=== PATIENT | female | born 1950 | race Caucasian/White ===

== ENCOUNTER 2021-08-25 18:12 | Emergency (ER) | payer MEDICARE, MEDICAID, SELFPAY ==
[2021-08-25 18:42] VITALS: BP 187/95; PULSE 100; RESP 16; TEMP 36.2; O2SAT 96; BMI 26.2
[2021-08-25 19:14] LABS: COVID-19 Test Positive (Negative)
--- NOTE | 2021-08-25 22:09 | ED_ITS ---
HPI - URI/Sore Throat General Chief Complaint: Upper Respiratory Symptoms Stated Complaint: Flu like Time Seen by Provider: 08/25/21 21:47 Source: patient Mode of arrival: ambulatory Limitations: no limitations History of Present Illness HPI Narrative: 71-year-old female who presents emergency way lynne cough nonproductive. She mild should hurts of breath and fatigue with exertion but no dyspnea on exertion. She denied myalgias arthralgias, loss of sense of taste or smell, diarrhea. The patient states that her symptoms have not been getting worse but she was concerned that she might have COVID-19 so she came to the emergency department for evaluation. She has not been vaccinated for COVID-19. She denies any chronic medical conditions such as diabetes, hypertension, hyperlipidemia. She states she has anxiety and she takes a medication for anxiety but she does not know the name of this medicine. Related Data Allergies Allergy/AdvReac Type Severity Reaction Status Date / Time Penicillins Allergy Rash Verified 08/25/21 18:42 Review of Systems Review of Systems: Yes all other systems are reviewed and are negative Neurologic: Reports Abnormal speech present [facility] Past Medical History [facility] Narrative: Past medical history: Anxiety. Past surgical history: Patient states that she had a benign mass removed from her abdomen but she does not know the source of the mass. The patient is a former smoker, she smoked 1 pack per day times 20 years but stopped smoking 20 years ago. She denies alcohol and drug use. Medical History (Updated 08/25/21 @ 22:24 by Kaden Beard MD) Schizophrenia Social History Social History Advance Directives: No Advance Directives Information Provided: Yes Physical Exam Vital Signs: Vital Signs: Last Vital Signs Temp 97.2 F 08/25/21 18:42 Pulse 100 08/25/21 18:42 Resp 16 08/25/21 18:42 BP 187/95 H 08/25/21 18:42 Pulse Ox 96 08/25/21 18:42 BMI result Body Mass Index 26.2 Const: General: cooperative, no acute distress, well developed, alert and awake Orientation/consciousness: oriented to person HENMT: Head: Yes normal to inspection, Yes normocephalic and Yes atraumatic Ears: hearing grossly normal bilaterally General nose exam: Normal external nose present Face and sinus: Yes normal facial exam Mouth: Normal oral and palatal mucosa present, lip normal, tongue normal, oropharynx normal and moist mucous membranes Throat: Yes posterior oropharynx normal, Yes tonsils normal and Yes uvula midline Eyes: General: appearance normal, both eyes and all related structures Eyelids: Yes eyelids normal Conjunctivae: conjunctivae normal Sclerae: sclerae normal Corneas: corneas normal Pupils: Equal, round and reactive pupils present Neck: Neck: Yes normal visual inspection, Yes no lymphadenopathy, Yes trachea midline and Yes supple Thyroid: Thyroid normal Lymphatic: no lymphadenopathy noted Chest: Chest palpation & inspection: normal inspection of the chest and normal palpation of entire chest wall Resp: Effort & Inspection: normal respiratory effort and able to speak in complete sentences Auscultation: clear to auscultation bilaterally Cardio: Rate: regular rate Rhythm: regular rhythm Heart sounds: S1 normal heart sound present, S2 normal heart sound present and no murmurs GI: Inspection: Yes normal to inspection Palpation (GI): Soft to palpation, nontender and No hepatosplenomegaly present Auscultation: normal bowel sounds : General: Yes no CVA tenderness Back/Spine/Pelvis: Back: no CVA tenderness Thoracic/Lumbar Spine: thoracic and lumbar spine normal to inspection Skin: General skin exam: no rashes or lesions noted, no erythema and no jau ndice Lesions: no lesions Rashes: no rashes Trauma: no lacerations or abrasions Wounds: no wounds Neuro: General: oriented to person, moves all extremities and no focal motor deficits Cranial nerves: Yes Equal, round and reactive pupils present Cognition (Neuro): normal cognition Speech: Abnormal speech present Motor exam (neuro): Motor abnormalities not present Extrem: General: Yes normal to inspection, Yes no pedal edema and Yes no calf tenderness Right upper extremity: normal to inspection Left upper extremity: normal to inspection Right lower extremity: normal to inspection Left lower extremity: normal to inspection Psych: Appearance: grossly normal Mental Status: mental status grossly normal Speech and movement: Normal speech and movement present Affect: normal affect Attitude: cooperative Thought process: Normal thought process present Insight: Good insight present (Psych) Course Course Course Narrative: 71-year-old female who presents emergency department for evaluation of upper respiratory symptoms times 10 days. The patient has not be en vaccinated for COVID-19. Patient has no significant chronic medical problems that she is aware of. She states however she has not seen a doctor in a long period of time. Patient's vital signs revealed a blood pressure of 187/95, pulse of 100, respiratory rate of 16 and an O2 saturation of 96% on room air. Physical examination was unremarkable. Patient's COVID-19 test was negative. Given the onset of her symptoms 10 days prior, there is no treatment available for this patient, she does not qualify for monoclonal therapy. I did discuss the treatment of COVID-19 and signs and symptoms of COVID pneumonia with the patient. The patient was discharged home with verbal and printed instructions. She was advised to isolate at home for 14 days. MDM - URI/Sore Throat Lab Data Labs: Lab Results 08/25/21 Range/Units 18:50 COVID-19 (MIC) Positive A (Negative) COVID-19 Clin Com See Note Discharge Plan Discharge Clinical Impression: Upper respiratory infection, COVID-19 virus infection Patient Disposition: Home, Self-Care Instructions: COVID-19 (Coronavirus Disease 2019) (ED) Additional Instructions: Your COVID-19 test today was positive. Based on the description of your symptoms it sounds like you have had a COVID infection for at least 10 days. There is no treatment for COVID-19 available to you at this time. Your vital signs today revealed a normal O2 saturation of 96 % on room air which is normal (92% to 100% is the normal range). We do not hospitalize people with a COVID-19 infection unless your O2 saturation drops below 90% and you have evidence for pneumonia on your chest x-ray. COVID-19 infection is a very bad viral infection and is causing all of your symptoms The symptoms that we normally see with a COVID-19 infection include sore throat, runny nose, chest pain, shortness of breath, shortness of breath with exertion, muscle aches, muscle pains, nausea, vomiting , diarrhea, loss of sense of taste or smell. You do not need to have all of the symptoms. Take ibuprofen 200 mg pills,2 pills every 6 hours as needed for pain and fever Take Tylenol (acetaminophen) 500 mg pills, 2 pills every 4 to 6 hours as needed for pain and fever. Based on your evaluation today, it is okay to send you home. Please plan for self quarantine for up to 14 days. Do not expose yourself to others. You may not go to work. Please continue to wear a mask, follow COVID-19 printed discharge instructions and wash your hands frequently. Please return to the emergency department if your symptoms pneumonia which would include worsening of your symptoms especially chest pain the breathing, shortness of breath at rest, shortness of breath with moving around her exerting herself, severe weakness, or if you develop any symptoms that are concerning to you. Three weeks after you get better you should definitely get the Moderna or Pfizer COVID-19 vaccine series.
== END 2021-08-25 23:03 | disposition home or self-care (01) ==
PROVIDERS: Emergency Provider Emergency Medicine Emergency Medical Services
DX: U07.1 COVID-19 (principal); J06.9 Acute upper respiratory infection, unspecified; R05.9 Cough, unspecified; R06.02 Shortness of breath; Z79.899 Other long term (current) drug therapy
CPT/HCPCS: 87635; 99283

== ENCOUNTER 2023-05-11 08:35 | Outpatient (REF) | payer MEDICARE, MEDICAID, SELFPAY ==
[2023-05-11 14:33] LABS: MANUAL DIFF FLAG NO
[2023-05-11 14:44] LABS: Basophils Percent Auto 0.3 % (0-2); Eosinophils Absolute Auto 0.1 X10*3/uL (0.0-0.4); Eosinophils Percent Auto 0.9 % (0-4); Hematocrit 40.6 % (37.0-47.0); Hemoglobin 14.1 g/dl (12.0-16.0); Imm Gran Abs Auto 0.04 X10*3/uL (0.00-0.03); Imm Gran Pct Auto 0.4 % (0.0-0.4); Lymphocytes Absolute Auto 2.4 X10*3/uL (1.2-4.9); Lymphocytes Percent Auto 23.1 % (20-40); Mean Corpuscular HGB Conc 34.7 g/dl (31.0-35.0); Mean Corpuscular Hemoglobin 29.5 pg (27.0-33.0); Mean Corpuscular Volume 84.9 fL (80.0-98.0); Mean Platelet Volume 11.1 fL (9.4-12.3); Monocytes Absolute Auto 0.6 X10*3/uL (0.1-1.2); Monocytes Percent Auto 5.8 % (2-11); Neutrophils Absolute Auto 7.3 x10*3/uL (2.0-8.3); Neutrophils Percent Auto 69.5 % (45-73); Platelet Count 258 X10*3/uL (160-400); Red Blood Count 4.78 X10*6/uL (4.20-5.50); Red Cell Distribution Width 12.5 % (11.0-16.0); White Blood Count 10.4 X10*3/uL (4.8-10.8)
[2023-05-11 15:01] LABS: Alanine Aminotransferase 21 U/L (0-31); Albumin Level 4.2 g/dL (3.5-5.0); Alkaline Phosphatase 58 U/L (39-117); Anion Gap 13 (12-20); Aspartate Amino Transferase 29 U/L (5-31); Bilirubin Direct 0.3 mg/dL (0.0-0.5); Bilirubin Total 0.8 mg/dL (0.0-1.0); Blood Urea Nitrogen 6 mg/dL (9-16); Calcium 9.5 mg/dL (8.4-10.2); Carbon Dioxide 30 mmol/L (22-29); Chloride 101 mmol/L (96-108); Estimated Glomerular Filt Rate > 60; Glucose Fasting 81 mg/dL (60-99); Potassium 3.4 mmol/L (3.3-5.1); Sodium 141 mmol/L (135-145); Total Protein 8.2 g/dL (6.5-8.0)
[2023-05-11 15:09] LABS: Creatinine Urine 393.06 mg/dL
[2023-05-11 15:19] LABS: TSH reflex Free T4 0.38 uIU/mL (0.32-4.0)
[2023-05-11 15:21] LABS: Vitamin B12 599 pg/mL (200-900)
== END 2023-05-11 08:36 | disposition home or self-care (01) ==
LOC: HO.CHCLDS 08:35
PROVIDERS: Visit Provider Pediatrics
DX: I10 Essential (primary) hypertension (principal)
CPT/HCPCS: 36415; 80048; 80076; 82043; 82570; 82607; 84443; 85025

== ENCOUNTER 2024-04-14 10:52 | Outpatient (REF) | payer MEDICARE, MEDICAID, SELFPAY ==
[2024-04-14 14:40] LABS: MANUAL DIFF FLAG NO
[2024-04-14 14:49] LABS: Basophils Percent Auto 0.2 % (0-2); Eosinophils Absolute Auto 0.1 X10*3/uL (0.0-0.4); Eosinophils Percent Auto 0.8 % (0-4); Hemoglobin 13.2 g/dl (12.0-16.0); Imm Gran Abs Auto 0.05 X10*3/uL (0.00-0.03); Imm Gran Pct Auto 0.5 % (0.0-0.4); Lymphocytes Absolute Auto 2.9 X10*3/uL (1.2-4.9); Lymphocytes Percent Auto 29.3 % (20-40); Mean Corpuscular HGB Conc 35.7 g/dl (31.0-35.0); Mean Corpuscular Hemoglobin 30.4 pg (27.0-33.0); Mean Corpuscular Volume 85.3 fL (80.0-98.0); Mean Platelet Volume 10.7 fL (9.4-12.3); Monocytes Absolute Auto 0.6 X10*3/uL (0.1-1.2); Monocytes Percent Auto 6.3 % (2-11); Neutrophils Absolute Auto 6.2 x10*3/uL (2.0-8.3); Neutrophils Percent Auto 62.9 % (45-73); Platelet Count 252 X10*3/uL (160-400); Red Blood Count 4.34 X10*6/uL (4.20-5.50); Red Cell Distribution Width 12.3 % (11.0-16.0); White Blood Count 9.9 X10*3/uL (4.8-10.8)
[2024-04-14 15:07] LABS: Alanine Aminotransferase 17 U/L (0-31); Albumin Level 4.1 g/dL (3.5-5.0); Alkaline Phosphatase 55 U/L (39-117); Anion Gap 12 (12-20); Aspartate Amino Transferase 28 U/L (5-31); Bilirubin Direct 0.2 mg/dL (0.0-0.5); Bilirubin Total 0.7 mg/dL (0.0-1.0); Blood Urea Nitrogen 9 mg/dL (9-16); Calcium 9.8 mg/dL (8.4-10.2); Carbon Dioxide 31 mmol/L (22-29); Chloride 99 mmol/L (96-108); Estimated Glomerular Filt Rate > 60; Glucose Random 79 mg/dL (60-115); Potassium 3.4 mmol/L (3.3-5.1); Sodium 139 mmol/L (135-145)
[2024-04-14 15:10] LABS: Rheumatoid Factor 17.8 IU/mL (<15.0)
[2024-04-14 15:17] LABS: TSH reflex Free T4 0.59 uIU/mL (0.32-4.0)
[2024-04-14 15:29] LABS: Erythrocyte Sedimentation Rate 20 MM/HR (0-20)
[2024-04-14 15:35] LABS: Folate 10.1 ng/mL (> or = 4.0); Vitamin B12 477 pg/mL (200-900)
== END 2024-04-14 10:53 | disposition home or self-care (01) ==
LOC: HO.CHCLDS 10:52
PROVIDERS: Visit Provider Pediatrics
DX: I10 Essential (primary) hypertension (principal); M19.041 Primary osteoarthritis, right hand; M19.042 Primary osteoarthritis, left hand
CPT/HCPCS: 36415; 80048; 80076; 82607; 82746; 84443; 85025; 85652; 86431

== ENCOUNTER 2025-03-14 09:13 | Outpatient (REF) | payer MEDICARE, MEDICAID, SELFPAY ==
--- OUTSIDE RECORDS SUMMARY | 2025-03-14 09:32 | XMS_ITS | Clinical Summary ---
Author Organization [employer] Address [address] [facility] [address] [place] [address] Care Team Providers Care Inspector Soldering Name Role Phone Dary Dubois MD Primary Care Provider [phone] Allergies Active Allergy Reactions Criticality Noted Date Comments Daryl Inhibitors 07/18/2022 Penicillins 07/18/2022 Medications loratadine (Claritin) 10 MG tabletIndication s:Cough in adult TAKE 1 TABLET BY MOUTH EVERY DAY IN THE MORNING 90 tablet 3 3 Active ergocalciferol (Vitamin D2) 1.25 MG (99450 UT) capsule TAKE 1 CAPSULE BY MOUTH ONE TIME PER WEEK 12 capsule 1 3 Active Blood Pressure kitIndications:P rimary hypertension Check bp daily 1 kit 4 Active triamcinolone (Kenalog) 0.1 % cream Apply topically 2 times daily. 45 g 3 4 Active venlafaxine XR (Effexor XR) 37.5 MG 24 hr capsuleIndicatio ns:Primary hypertension,Anx iety Take 1 capsule (37.5 mg) by mouth Once per day. Do not crush or chew. 30 capsule 11 5 02/17/20 26 Active losartan (Cozaar) 25 MG tabletIndication s:Primary hypertension Take 1 tablet (25 mg) by mouth Once per day. 90 tablet 3 5 02/17/20 25 Discontin ued(Side effects) azithromycin (Zithromax) 250 MG tablet Take 2 tabs orally on day 1 then 1 tablet orally daily for 4 more days 6 tablet 5 02/17/20 25 Discontin ued(Thera py completed ) Active Problems Problem Noted Date Diagnosed Date Primary hypertension 07/18/2022 Assessment & Plan (07/18/2022 12:30 PM EST): Uncontrolled today. Patient with previous dx of htn, not on meds, recent Bps are fairly normal. We couldn't obtain a good quality EKG today, rhtyhm strip didn't show any abn, some lateral leads were absent, otherwise a normal EKG. Avoid OTC cough meds, fu BP w RN in 3w. No meds started. Cough in adult 07/18/2022 Assessment & Plan (07/18/2022 12:29 PM EST): It must be residual from santy, ro asthma Rx Flonase nasal inh + loratadine Order PFTs and fu PCP Encounters Date Type Department Care Team Description 02/16/2025 10:00 AM EDT Office Visit [facility] MED & P[facility]S [address] [place] [address] Dary Dubois MD Primary hypertension (Primary Dx); Anxiety; Dietary counseling; Exercise counseling 02/16/2025 Travel from Last 3 Months Immunizations Immunization Administration Dates Next Due Pfizer Covid-19 Vaccine 12+ 05/04/2024 Social History Tobacco Use Types Packs/Day Years Used Date Smoking Tobacco: Former Cigarettes Q uit: 2008 Passive Smoke Exposure: Past Smokeless Tobacco: Never Tobacco Cessation:Counseling Given: Not Answered Alcohol Answer Date Recorded Frequency of Alcohol Consumption Not on file 05/07/2023 Average Number of Drinks Not on file 023 Frequency of Binge Drinking Not on file 04/11 Score 0 05/07/2023 Housing Stability Answer Date Recorded What is your housing situation today? I do not have housing (Staying with others, in a hotel, in a retirement, living outside on the street, on a beach, in a car, or in a park 05/21/[address] you li ve. Do you have problems with any of the following? Mold 05/21/2023 Food Insecurity Answer Date Recorded Within the past 12 months, y ou worried that your food would run out before you got money to buy more: Never True 06/20/2023 Within the past 12 months,th e food you bought just didn't last and you didn't have enough money to get more: Never True 06/2023 Transportation Answer Date Recorded In the past 12 months, has l ack of transportation kept you from medical appts, meetings, work or from getting things needed for daily living? No 06/20/2023 Utilities Answer Date Recorded In the past 12 months, has t he electric, gas, oil or water company threatened to shut off services in your home? No 06/20/2023 Comments Unknown Sex and Gender Information Value Date Recorded Sex Assigned at Female 06/09/2022 10:14 AM EDT Legal Sex Female 10:14 AM EDT Gender Identity Female 06/09/2022 10:14 AM EDT Sexual Orientation Straight 06/09/2022 10 :14 AM EDT Last Filed Vital Signs Vital Sign Reading Time Taken Comments Blood Pressure 160/80 02/16/2025 9:31 AM EDT Pulse 92 02/16/2025 9:31 AM EDT Temperature 36.6 C (97.8 F) 02/16/2025 9:31 AM EDT Respiratory Rate 20 02/16/2025 9:31 AM EDT Oxygen Saturation 96% 11/17/2024 1:23 PM EDT Inhaled Oxygen Concentration - - Weight 63.5 kg (140 lb) 02/16/2025 9:31 AM EDT Height 157.5 cm (5' 2 ) 11/17/2024 1:23 PM EDT Body Mass Index 25.61 11/17/2024 1:23 PM EDT Plan of Treatment Upcoming Encounters Date Type Department Care Team ([facility] st Contact Info) Description 04/07/2025 9:45 AM EDT Office Visit [facility] [address] [place] [address] Dary Dubois MD [address] [place] [address] Health Maintenance Due Date Last Done Comments CT Colonography 1951 Colonoscopy 1951 Colorectal Cancer Screening 1951 Depression Screening 1951 FIT DNA/Cologuard 1951 FIT 1951 FOBT 1951 Sigmoidoscopy 1951 Alcohol/Substance Use Screening 1963 Hepatitis C Screening 1969 DTaP/Tdap/Td Vaccines (1 - Tdap) 1970 Mammogram 1991 Pneumococcal Vaccine: 50+ Ye ars (1 of 1 - PCV) 2001 Zoster Vaccines (1 of 2) 2001 SDOH Screening 04/29/2024 04/29/2023 COVID-19 Vaccine (2 - 2023-2 5 season) 2024 05/04/2024 Influenza Vaccine (#1) 2025 Lipid Panel 06/28/2025 06/28/2020 Tobacco Screening 02/16/2026 02/16/2025 RSV Patients and Pa tients Aged 60 years or older (1 - 1-dose 75+ series) 2026 HIB Vaccines Aged Out No longer eligi ble based on patient's age to complete this topic HPV Vaccines Aged Out No longer eligi ble based on patient's age to complete this topic Hepatitis A Vaccines Aged Out No long er eligible based on patient's age to complete this topic Hepatitis B Vaccines Aged Out No long er eligible based on patient's age to complete this topic IPV Vaccines Aged Out No longer eligi ble based on patient's age to complete this topic Meningococcal B Vaccine Aged Out No l onger eligible based on patient's age to complete this topic Meningococcal Vaccine Aged Out No bouchra malu eligible based on patient's age to complete this topic RSV under 20 months Aged Out No longe r eligible based on patient's age to complete this topic Rotavirus Vaccines Aged Out No longer eligible based on patient's age to complete this topic Procedures Procedure Name Priority Date/Time Associated Diagnosis Comments AMB REFERRAL TO OPHTHALMOLOGY Routine 01/27/2025 Primary hypertension LIPID PANEL, STANDARD Routine 06/28/2020 8:06 AM EST from Last 3 Months or Most Recently Relevant to Health Maintenance Results * Referral to Ophthalmology (01/27/2025) us Dary Dubois MD OUTPATIENT REFERRAL ORDERABLE S Final Result * (ABNORMAL) LIPID PANEL, STANDARD (06/28/2020 8:06 AM EST) [facility] Signature Cholesterol, Total 221(H) <200 mg/dL [facility] Cholesterol, Total 221(H) <200 mg/dL [facility] Chol/HDLC Ratio 3.3 <5.0 (calc) [facility] Chol/HDLC Ratio 3.3 <5.0 (calc) [facility] LDL Cholesterol 131(H) mg/dL (calc) [facility] Comment: Reference range: <100 Desirable range <100 mg/dL for primary prevention; <70 mg/dL for patients with CHD or diabetic patients with > or = 2 CHD risk factors. LDL-C is now calculated using the Juan-Banks calculation, which is a validated novel method providing better accuracy than the Friedewald equation in the estimation of LDL-C. Juan SS et al. STERLING. 2013;310(19): 3429-4486 (http://education.Xcalar.Sprint Nextel/faq/DCI424) HDL Cholesterol 68 > OR = 50 mg/dL [facility] Triglycerides 116 <150 mg/dL [facility] Non-HDL Cholesterol 153(H) <130 mg/dL (calc) [facility] Comment: For patients with diabetes plus 1 major ASCVD risk factor, treating to a non-HDL-C goal of <100 mg/dL (LDL-C of <70 mg/dL) is considered a therapeutic option. Chol/HDLC Ratio 3.3 <5.0 (calc) [facility] Cholesterol, Total 221(H) <200 mg/dL [facility] LDL Cholesterol 131(H) mg/dL (calc) [facility] Comment: Reference range: <100 Desirable range <100 mg/dL for primary prevention; <70 mg/dL for patients with CHD or diabetic patients with > or = 2 CHD risk factors. LDL-C is now calculated using the Juan-Banks calculation, which is a validated novel method providing better accuracy than the Friedewald equation in the estimation of LDL-C. Juan SS et al. STERLING. 2013;310(19): 2763-1304 (http://education.Xcalar.Sprint Nextel/faq/WUK572) Triglycerides 116 <150 mg/dL [facility] HDL Cholesterol 68 > OR = 50 mg/dL [facility] HDL Cholesterol 68 > OR = 50 mg/dL [facility] Non-HDL Cholesterol 153(H) <130 mg/dL (calc) [facility] Comment: For patients with diabetes plus 1 major ASCVD risk factor, treating to a non-HDL-C goal of <100 mg/dL (LDL-C of <70 mg/dL) is considered a therapeutic option. Triglycerides 116 <150 mg/dL [facility] LDL Cholesterol 131(H) mg/dL (calc) [facility] Comment: Reference range: <100 Desirable range <100 mg/dL for primary prevention; <70 mg/dL for patients with CHD or diabetic patients with > or = 2 CHD risk factors. LDL-C is now calculated using the Juan-Jocelyn calculation, which is a validated novel method providing better accuracy than the Friedewald equation in the estimation of LDL-C. Juan SS et al. STERLING. 2013;310(19): 5994-8404 (http://education.Intexys/faq/PTL895) Non-HDL Cholesterol 153(H) <130 mg/dL (calc) [facility] Comment: For patients with diabetes plus 1 major ASCVD risk factor, treating to a non-HDL-C goal of <100 mg/dL (LDL-C of <70 mg/dL) is considered a therapeutic option. 06/28/2020 8:06 AM EST us Dary Dubois MD LAB BLOOD ORDERABLES Final Re sult [facility] [address] from Last 3 Months or Most Recently Relevant to Health Maintenance Insurance MEDICARE [facility] ST[employer] Care Teams Inspector Soldering Relationship Specialty Start Date End Date Dary Dubois MD [address] [place] [id number] PCP - General Family Medicine 11/24/18
[2025-03-14 14:19] LABS: MANUAL DIFF FLAG NO
[2025-03-14 14:26] LABS: Hematocrit 37.7 % (37.0-47.0); Hemoglobin 13.1 g/dl (12.0-16.0); Imm Gran Abs Auto 0.03 X10*3/uL (0.00-0.03); Imm Gran Pct Auto 0.3 % (0.0-0.4); Lymphocytes Absolute Auto 2.5 X10*3/uL (1.2-4.9); Mean Corpuscular HGB Conc 34.7 g/dl (31.0-35.0); Mean Corpuscular Hemoglobin 29.4 pg (27.0-33.0); Mean Corpuscular Volume 84.5 fL (80.0-98.0); NRBC Abs Auto 0.000 X10*3/uL (0.0-0.012); NRBC Pct Auto 0.0 /100WBC (0.0-0.2); Platelet Count 272 X10*3/uL (160-400); Red Blood Count 4.46 X10*6/uL (4.20-5.50); White Blood Count 9.5 X10*3/uL (4.8-10.8)
[2025-03-14 14:48] LABS: Microalbum/Creatinine Ratio Ur 28.2 ug/mg cr (<30)
[2025-03-14 14:56] LABS: Alanine Aminotransferase 13 U/L (0-31); Albumin Level 4.3 g/dL (3.5-5.0); Alkaline Phosphatase 54 U/L (39-117); Anion Gap 11 (12-20); Aspartate Amino Transferase 29 U/L (5-31); Blood Urea Nitrogen 8 mg/dL (9-16); Calcium 9.1 mg/dL (8.4-10.2); Carbon Dioxide 31 mmol/L (22-29); Chloride 102 mmol/L (96-108); Cholesterol 235 mg/dL (<200); Estimated Glomerular Filt Rate > 60; HDL Cholesterol 63 mg/dL (>40); Potassium 3.4 mmol/L (3.3-5.1); Sodium 141 mmol/L (135-145); Total Protein 8.0 g/dL (6.5-8.0); Triglycerides 105 mg/dL (<150)
[2025-03-14 15:15] LABS: Folate 11.9 ng/mL (> or = 4.0); Vitamin B12 442 pg/mL (200-900)
== END 2025-03-14 09:14 | disposition home or self-care (01) ==
LOC: HO.CHCLDS 09:13
PROVIDERS: Visit Provider Pediatrics
DX: I10 Essential (primary) hypertension (principal); F41.9 Anxiety disorder, unspecified
CPT/HCPCS: 36415; 80048; 80061; 80076; 82043; 82570; 82607; 82746; 84443; 85025